=== PATIENT | female | born 1950 | race Caucasian/White ===

== ENCOUNTER 2017-08-31 10:06 | Emergency (ER) | payer OTHER ==
[~2017-08-31] VITALS: Ht 154.9 cm; Wt 75.0 kg
[2017-08-31 10:27] VITALS: BP 143/68
[2017-08-31] MEDS ORDERED: ACETAMINOPHEN 325MG TABLET PO ONE (11:00)
== END 2017-08-31 12:37 | disposition home or self-care (01) ==
LOC: ER 10:41
DX: M65.20 Calcific tendinitis, unspecified site (principal); M19.012 Primary osteoarthritis, left shoulder; I10 Essential (primary) hypertension; W01.0XXA Fall on same level from slipping, tripping and stumbling without subsequent striking against object, initial encounter; Z88.0 Allergy status to penicillin
CPT/HCPCS: 73030; 73060; 99284